=== PATIENT | male | born 1955 | race Asian ===

== ENCOUNTER → 2019-08-11 | Outpatient (CLI) | payer MEDICARE, OTHER | END | disposition home or self-care (01) | LOC: RADPV 10:50 | PROVIDERS: ATTEND Family Medicine | DX: M77.32 Calcaneal spur, left foot (principal); M77.31 Calcaneal spur, right foot; M25.571 Pain in right ankle and joints of right foot; M25.572 Pain in left ankle and joints of left foot; M25.562 Pain in left knee ==

== ENCOUNTER → 2022-08-20 | Outpatient (CLI) | payer MEDICARE, OTHER ==
[~2022-08-20] MED LIST: AMINOPHYLLINE 25 MG/ML 10 ML VIAL IVP PRN; REGADENOSON 0.4 MG/5 ML PF SYRINGE IVP ONE; SESTAMIBI TC99M/UD ISOTOPE 1 EA INJ INJ ONE
[2022-08-20 09:40] VITALS: BP 118/88
== END | disposition home or self-care (01) ==
LOC: CARDMN 08:12
PROVIDERS: ATTEND Internal Medicine Cardiovascular Disease
DX: I08.0 Rheumatic disorders of both mitral and aortic valves (principal); K76.89 Other specified diseases of liver; I71.40 Abdominal aortic aneurysm, without rupture, unspecified
CPT/HCPCS: 78452; 93306; 76700; A9500

== ENCOUNTER → 2024-05-19 | Outpatient (CLI) | payer MEDICARE, OTHER | END | disposition home or self-care (01) | LOC: RADMN 13:26 | PROVIDERS: ATTEND Internal Medicine Geriatric Medicine | DX: J98.11 Atelectasis (principal); J84.9 Interstitial pulmonary disease, unspecified; R07.89 Other chest pain; R05.1 Acute cough; I70.0 Atherosclerosis of aorta | CPT/HCPCS: 71046; 71100 ==

== ENCOUNTER → 2024-10-26 | Outpatient (CLI) | payer MEDICARE, OTHER ==
[~2024-10-26] VITALS: Ht 175.3 cm; Wt 86.0 kg
[2024-10-26 12:51] VITALS: BP 100/67; PULSE 76; RESP 16; TEMP 98.1; O2SAT 96
== END | disposition still patient (30) ==
LOC: SRCNTR 12:33
PROVIDERS: ATTEND Internal Medicine Pulmonary Disease
DX: I10 Essential (primary) hypertension (principal); E03.9 Hypothyroidism, unspecified; E78.5 Hyperlipidemia, unspecified; G47.33 Obstructive sleep apnea (adult) (pediatric); J98.11 Atelectasis; N40.0 Benign prostatic hyperplasia without lower urinary tract symptoms; Z79.02 Long term (current) use of antithrombotics/antiplatelets; Z82.3 Family history of stroke; Z82.49 Family history of ischemic heart disease and other diseases of the circulatory system; Z86.73 Personal history of transient ischemic attack (TIA), and cerebral infarction without residual deficits; Z86.79 Personal history of other diseases of the circulatory system; Z87.891 Personal history of nicotine dependence; Z88.0 Allergy status to penicillin; Z88.2 Allergy status to sulfonamides
CPT/HCPCS: G0463; Z7500

== ENCOUNTER → 2025-04-17 | Outpatient (CLI) | payer MEDICARE, OTHER | END | disposition home or self-care (01) | LOC: RADMN 12:11 | PROVIDERS: ATTEND Internal Medicine Geriatric Medicine | DX: M19.011 Primary osteoarthritis, right shoulder (principal); M19.012 Primary osteoarthritis, left shoulder; M41.86 Other forms of scoliosis, lumbar region; M47.817 Spondylosis without myelopathy or radiculopathy, lumbosacral region; M47.815 Spondylosis without myelopathy or radiculopathy, thoracolumbar region; M25.78 Osteophyte, vertebrae; M48.07 Spinal stenosis, lumbosacral region; M25.551 Pain in right hip; M25.552 Pain in left hip; M18.9 Osteoarthritis of first carpometacarpal joint, unspecified; M25.432 Effusion, left wrist; M47.813 Spondylosis without myelopathy or radiculopathy, cervicothoracic region; M50.31 Other cervical disc degeneration, high cervical region; M48.02 Spinal stenosis, cervical region | CPT/HCPCS: 72040; 72100; 73521; 73030-TC; 73110-TC ==